=== PATIENT | female | born 2000 | race Asian ===

== ENCOUNTER → 2022-02-19 14:49 | Outpatient (CLI) | payer OTHER, SELFPAY ==
--- NOTE | 2022-02-19 14:50 | DI.US.S_ITS ---
PROCEDURE: US OB <= 14 WEEKS FETUS INDICATIONS: DATES OUTSIDE/PRIOR DATING DATA: Last menstrual period (LMP): 11/24/2021 LMP-based estimated date of delivery (EWELINA): 08/31/2022. First dating scan (date and location): 02/19/2022. Estimated date of delivery (EWELINA) from first dating scan: 09/22/2022. The calculations are made using the ultrasound EWELINA of 09/22/2022. TECHNIQUE: Real-time scanning was performed of the fetus and maternal pelvic organs, with image documentation. Endovaginal scanning was also performed to better visualize the fetus and maternal ovaries. COMPARISON: None. FINDINGS: Embryo: [place]-rump length measures 2.6 cm corresponding to 9 weeks 2 days. Heart rate: 180 beats per minute Maternal organs: Ovaries right ovary not visualized. 2.5 cm left corpus luteal cyst.. IMPRESSION: 9 week 2 day single living IUP. We strive to produce accurate, complete, and clear reports of imaging services. To assist us in improving patient care, this report was composed using standard report templates and voice recognition software. Therefore, it may contain abnormal punctuation, insertions and/or omissions. Occasional wrong-word or sound-alike substitutions may occur. Though we review the report and make efforts to correct it, we do recommend that the report be read carefully in proper context to recognize any text inaccuracies. Dictated by: Yobani FALL Interpreted: Julieta Marte MD on 02/19/2022 at 15:31 Transcribed by: SIENNA on 02/19/2022 at 15:32 Approved by: Julieta Marte MD, PhD on 02/19/2022 at 15:45
[2022-02-19 15:43] LABS: Add Manual Diff / Slide Review NO; Basophils Absolute Auto 0 /uL (0-100); Basophils Percent Auto 0.3 % (0-2); Eosinophils Absolute Auto 100 /uL (0-450); Eosinophils Percent Auto 1.2 % (2-4); Hematocrit 40.2 % (36-46); Hemoglobin 13.8 g/dL (12.0-16.0); Lymphocytes Absolute Auto 2400 /uL (1100-4500); Lymphocytes Percent Auto 22.4 % (25-40); Mean Corpuscular HGB Conc 34.3 % (30-36); Mean Corpuscular Hemoglobin 30.1 PG (26-34); Mean Corpuscular Volume 87.8 fL (80-100); Monocytes Absolute Auto 800 /uL (0-900); Monocytes Percent Auto 7.1 % (3-14); Neutrophils Absolute Auto 7300 /uL (1500-7000); Platelet Count 351 X10^3/uL (150-400); Red Blood Cell Count 4.58 X10^6/uL (4.0-5.2); Red Cell Distribution Width 14.1 % (11.6-14.8); White Blood Cell Count 10.6 X10^3/uL (4.5-11.0)
[2022-02-19 16:59] LABS: Hepatitis B Surface Antigen NEGATIVE s/c (NEGATIVE); Rubella Antibody IgG 55.3 IU/mL (>15)
[2022-02-19 17:17] LABS: HIV 1 & 2 Ab/Ag 4th Gen Combo NEGATIVE (NEGATIVE); Hep C Virus Ab w/Reflex Quant NEGATIVE s/c (NEGATIVE)
[2022-02-20 08:14] LABS: RPR Screen Non Reactive (Non Reactive); Varicella IgG Antibody 478 index (Immune >165)
== END ==
PROVIDERS: PCP Family Medicine; Referring Provider Family Medicine; Visit Provider Family Medicine
DX: Z34.01 Encounter for supervision of normal first pregnancy, first trimester (principal); Z3A.09 9 weeks gestation of pregnancy
CPT/HCPCS: 36415; 76801; 76817; 80055; 86787; 86803; 86850; 86900; 86901; 87389

== ENCOUNTER → 2022-04-23 15:44 | Outpatient (CLI) | payer OTHER, SELFPAY ==
[2022-04-28 07:38] LABS: AFP, Serum 35.2 ng/mL (.); Calc Gestational Age EDD (.); Estriol, Free 1.27 ng/mL (.); Inhibin A, Dimeric 129.38 pg/mL (.); Inhibin A, MoM 0.86 (.); Maternal Ethnicity Other (.); Maternal Weight 156 lbs (.); Number of Fetuses No (.); OSBR Risk 1 IN 10000 (.); Results Report (.); Test Results *Screen Negative* (.); hCG, MoM 0.79 (.); hCG, Serum 22134 mIU/mL (.)
== END ==
PROVIDERS: PCP Family Medicine; Referring Provider Family Medicine; Visit Provider Family Medicine
DX: Z34.92 Encounter for supervision of normal pregnancy, unspecified, second trimester (principal); Z3A.18 18 weeks gestation of pregnancy
CPT/HCPCS: 36415; 82105; 82677; 84702; 86336

== ENCOUNTER → 2022-07-03 09:49 | Outpatient (CLI) | payer OTHER, SELFPAY ==
[2022-07-03 11:34] LABS: Hematocrit 39.8 % (36-46)
[2022-07-03 12:01] LABS: GTT (PREG) 1 Hour PP 50gm Dose 147 mg/dL (76-139)
== END ==
PROVIDERS: PCP Family Medicine; Referring Provider Family Medicine; Visit Provider Family Medicine
DX: Z34.92 Encounter for supervision of normal pregnancy, unspecified, second trimester (principal); Z3A.25 25 weeks gestation of pregnancy
CPT/HCPCS: 36415; 82950; 85014; 85018

== ENCOUNTER → 2022-07-24 08:52 | Outpatient (CLI) | payer OTHER, SELFPAY ==
[2022-07-24 10:24] LABS: Glucose Fasting 107 mg/dL (70-100)
[2022-07-24 12:05] LABS: Glucose 1 Hour 188 mg/dL (70-170)
[2022-07-24 12:11] LABS: Glucose 2 Hour 146 mg/dL (70-140)
[2022-07-24 12:14] LABS: Glucose Tol Interpretation INTERPRETATION
[2022-07-24 14:14] LABS: Glucose 3 Hour 132 mg/dL (70-115)
== END ==
PROVIDERS: PCP Family Medicine; Referring Provider Family Medicine; Visit Provider Family Medicine
DX: O99.810 Abnormal glucose complicating pregnancy (principal)
CPT/HCPCS: 36415; 82951; 82952

== ENCOUNTER → 2022-08-10 14:50 | Outpatient (CLI) | payer OTHER, SELFPAY ==
--- NOTE | 2022-08-10 15:00 | DIET.CONS ---
Dietary Consultation Note Dx: Gestational Diabetes EWELINA: 09/22/22 P: 0 baby girl Weeks: 34w tomorrow Provider: See 21y F of Surinamese heritage attending telehealth RD visit for new diagnosis gestational diabetes. Pt reports she was worried about BG checking, was told by pharmacist to prick finger pad, pt had to psych herself up each time she checked, then looked at Youtube for advice and learned to prick side of finger pad. Pt now with no issue checking BGs, she is doing this four times per day. Pt states checking BGs has been helpful to understand impact of sugar and carbs in her diet. Pt noticed if she is dehydrated or eats/drinks carbs by themselves, her numbers are higher. Pt had several high FBG and 1hPP while attending a softball tournament down in [place]- she ate a sushi burrito and drank apple juice. Pt very motivated to avoid insulin. Self-Monitoring Blood Glucose: FB, 139, 94, 99, 88, 108, 90, 89, 97, 90, 93 pt drinking more water, not eating after 8pm, smaller portion sizes carbs at dinner 1h PP: only 2 over 140 (>1c overnight oats, macaroni salad, sticky rice, apple juice or other juice) Diet Recall: B: eggs c avocado and toast, strawberries and blueberries on side c water Sn: skinny pop popcorn or crackers and cheese L: balance bar or yogurt c fruit and granola, doesn't get too hungry Sn: crackers with cucumber and cream cheese D: salmon, steak, dawson peppers, zucchini, mushrooms, sometimes keto dessert sometimes glass of whole milk before bed Anthropometrics: Wt: 168# Prepregnancy wt: 145# Wt changes: +23# Physical Activity: Pt got advice from OB and online to walk after dinner 10-15min, doing this daily with spouse. Date Pre Post Pre Post Pre Post Labs: 1hGTT: 147 H 3hGTT: FB H 1h: 188 H 2h: 146 H 3h: 132 H Current Medications: glucometer c test strips Nutrition Rx: Carbohydrates: Daily: 180g CHO Meal: 45-g lunch and dinner; 30g breakfast Snack: 15-30g Nutrition Diagnosis: - Altered nutrition related lab value r/t GDM dx aeb recent OGTT Intervention: This participant was very receptive. Provided appropriate educational handouts. Discussed the following topics: - GDM pathophysiology and impact of hyperglycemia on mom and baby - Risk for T2DM for mom and baby in the future - Ways to reduce risk T2DM - Plate Method, meal timing, carb counting, pairing macronutrients and spreading out CHO for better BG management - Blood glucose goals (FBG: <95 and 1 hour <140 mg/dL); importance of checking 4x per day (FBG and pc) - Impact of macronutrients on blood glucose - Recommended servings for carbohydrates at meals and snacks - Brainstormed appropriate meal plan based on her food preferences - Role of physical activity and following provider guidelines for safety Pt may benefit from initiation of Metformin to support optimal FBGs. Goals: - Pt will continue to check BG 4x/d -Pt will continue to stay adequately hydrated using urine color test. -Pt will continue to go on 10-15min walk after dinner daily. -Pt will work on pairing foods and portion control with carbs-NEW Follow-up: LISETTE VASQUEZ follow-up in one week on Aug 19 virtual visit. Electronically Signed by: Izabel Ivan 08/10/22 15:00 Clinical Dietitian [address] [id number]
== END ==
PROVIDERS: PCP Family Medicine; Referring Provider Family Medicine; Visit Provider Family Medicine
DX: O24.419 Gestational diabetes mellitus in pregnancy, unspecified control (principal); Z71.3 Dietary counseling and surveillance; Z3A.33 33 weeks gestation of pregnancy
CPT/HCPCS: 97802

== ENCOUNTER → 2022-08-19 17:43 | Outpatient (CLI) | payer OTHER, SELFPAY ==
--- NOTE | 2022-08-19 17:46 | DIAB.GDFU ---
Follow-up Gestational Diabetes Assessment Name: Aneta Pena Date: 08/19/22 Time: 10-11a Dx: Gestational Diabetes Provider: See EWELINA: 09/22/22 Weeks: 35 Aneta presents today for GDM follow-up virtually using the Georgina [employer] platform. Aneta saw Izabel RD last week for initial visit. +FH of DM with paternal grandfather and mother had h/o GDM. Reports incorporating some additional carbs, but she does endorse feeling uneasy with BG even in the 130s. States she has tried to incorporate some culturally appropriate foods, such as rice, and had BG of 130s mg/dL (in goal). Endorses -6# with diet changes. Has increased fluids to 5L per day, notices urine is clear. Averaging 90g CHO per day with current diet, well under DEPILATORY PAINTER of 175g. Aneta is really wanting to avoid medications. Diet Recall: wake at 8-830a 830-9a: eggs c avocado and 1x ww toast, handful strawberries and blueberries on side c water 10-11a: nothing or tortilla chips x 9 and 2 TBS hummus 12-1p: balanced breaks 10g CHO, with handful berries ; omelet, berries and veggies 3-4p: 1c skinny pop or keto cookies 830p: salmon or steak, salad with mashed potatoes x 1/2c, veggies with sweetened oyster sauce (B) 10p: 8-10oz milk Bed 10-11p Beverages: 5L per day Anthropometrics: Wt: 162.5# last week with OB (-3.5# since a previous OB appt 07/09/22 with wt of 168.25) Prepregnancy wt: 145# Physical Activity: Walking 10-20min after dinner Self-Monitoring Blood Glucose: Reports late dinner last night. Thinks this may have impacted elevated FBG. / elevated FBG. 2 elevated pc readings with low carb meals. Aneta may benefit from low dose of Metformin to allow for more carb intake and reduce elevated FBG. Date FBG Post Post Post 08/12 92 146 [place] pancakes large portions 118 118 08/13 90 114 122 104 08/14 96 120 126 111 08/15 89 99 104 Yogurt 0g CHO Granola berries 104 08/16 98 141 Bbq bistek [place] egg 116 115 08/17 93 131 108 124 08/18 95 133 134 119 08/19 111 139 Diabetes Medications: None Pertinent Labs: 1hGTT: 147 H 3hGTT: FB H 1h: 188 H 2h: 146 H 3h: 132 H Nutrition Rx: Carbohydrates: Meal: 45-g lunch and dinner; 30g breakfast Snack: 15-30g Nutrition Diagnosis: Altered nutrition related lab value r/t GDM dx aeb recent OGTT Inadequate CHO intake r/t fear of hyperglycemia and trying to avoid medications aeb pt report and diet recall Intervention: This participant was very receptive. Provided appropriate educational handouts. Discussed the following topics: Recent blood sugar results and impact of food and hormones Encouraged min 30g at meals and 15-30g at snacks BG goals review Built a meal plan based on Aneta's food preferences Review of macronutrient recommendations during Benefits, resources, and nutrition for recommendations for nutrition and physical activity recommendations for T2DM risk reduction OGTT at 6-12 weeks Option of checking blood sugars twice per week (goal: fasting <100 mg/dL and 2 hour pc <140 mg/dL) until 6 week check-up HgA1c q 1-3 years. Goals: Pt will continue to check BG 4x/d- met Pt will continue to stay adequately hydrated using urine color test.- met Pt will continue to go on 10-15min walk after dinner daily.-met Pt will work on pairing foods and portion control with carbs-met Aim for 100-130oz or 3-4L- new Try 2/3c rice or noodles at meals- new Aim min 30g per meal- new Aim for 110-140mg/dL pc- new Follow-up: LISETTE VASQUEZ follow-up prn Kimmie Live RDN, CHRISTINA Certified Diabetes Care and Splitting Machine Tender T: [phone] F: [phone] [email or web address] Thank you for this referral
== END ==
PROVIDERS: PCP Family Medicine; Referring Provider Family Medicine; Visit Provider Family Medicine
DX: O24.419 Gestational diabetes mellitus in pregnancy, unspecified control (principal); Z3A.35 35 weeks gestation of pregnancy; Z71.3 Dietary counseling and surveillance
CPT/HCPCS: G0108

== ENCOUNTER → 2022-08-26 14:18 | Outpatient (CLI) | payer OTHER, SELFPAY ==
--- NOTE | 2022-08-26 14:22 | DI.US.S_ITS ---
PROCEDURE: US OB LIMITED INDICATIONS: for growth OUTSIDE/PRIOR DATING DATA: Last menstrual period (LMP): 11/24/2021. LMP-based estimated date of delivery (EWELINA): 08/31/2022 First dating scan (date and location): 02/19/2022 Estimated date of delivery (EWELINA) from first dating scan: 09/22/2022. The calculations are made using the ultrasound EWELINA of 09/22/2022. TECHNIQUE: Real-time scanning was performed of the fetus, with image documentation. COMPARISON: None. FINDINGS: A single living intrauterine gestation is present. Presentation: Cephalic. Placenta: Placental position is posterior/fundal, without previa. Amniotic fluid index: 8.8 cm, normal range is 5-24 cm. Single deepest vertical pocket is 5.2 cm. heart rate: 153 beats per minute. Maternal cervical canal: Unable to visualize the cervical canal. Estimated gestational age from initial scan: 36 weeks 1 day. Estimated gestational age from current scan: 35 weeks 5 days. Estimated weight 2735 g. 38th percentile. anatomy: Limited visualization. Prior survey done at [facility]. IMPRESSION: 1. Single living intrauterine with an estimated gestational age of 36 weeks 1 day from initial ultrasound. 2. Estimated weight 2735 g, 38th percentile. 3. The placenta is not well seen but appears to be posterior/fundal. Dictated by: Don Bennett M.D. on 08/26/2022 at 16:22 Approved by: Don Bennett M.D. on 08/26/2022 at 16:26
== END ==
PROVIDERS: PCP Family Medicine; Referring Provider Family Medicine; Visit Provider Family Medicine
DX: O24.410 Gestational diabetes mellitus in pregnancy, diet controlled (principal); Z3A.36 36 weeks gestation of pregnancy
CPT/HCPCS: 76815

== ENCOUNTER → 2022-08-27 15:29 | Outpatient (CLI) | payer OTHER, SELFPAY ==
[2022-08-28 11:00] LABS: Strep Grp B PCR POS for Grp B Strep
== END ==
PROVIDERS: PCP Family Medicine; Visit Provider Family Medicine
DX: Z34.93 Encounter for supervision of normal pregnancy, unspecified, third trimester (principal); Z3A.36 36 weeks gestation of pregnancy
CPT/HCPCS: 87653

== ENCOUNTER 2022-08-27 16:04 | Outpatient (CLI) | payer OTHER, SELFPAY ==
--- NOTE | 2022-08-27 16:32 | P.TNLD_ITS ---
Visit Information Visit Information Date of evaluation: 08/27/22 Primary OB Provider: Ghazala Cui Reason for Evaluation: Yes non-stress test non-stress test reason: diabetes Comments/Additional reasons for admission: 21-year-old at 36 weeks and 2 days now with GDM A2. Fasting blood sugars have been elevated since her last clinic visit so metformin was started today. She denies contractions, leaking or bleeding and reports good movement. Vital Signs Vital Signs: Temperature 36.7? blood pressure 115/64 heart rate 100 PFSH Medical History (Updated 08/27/22 @ 16:53 by Ghazala Cui DO) No pertinent past medical history Surgical History No pertinent past surgical history Family History Father Hypertension Grandfather Hypertension Diabetes mellitus Social History marital status: number of children: 0 household members: spouse housing: apartment pets and animals: Yes (dog) education level: college occupational status: unemployed rose/oriental orthodox: Yarsanism seatbelt use: always water heater temp set < 120 deg: Yes working smoke detector in home: Yes fire extinguisher in home: Yes carbon monox detector in home: Yes firearms in home: Yes firearms unloaded and locked: Yes do you feel safe at home: Yes Smoking Status: Never smoker second hand exposure: No alcohol intake: former substance use type: does not use during the past year weight has: remained stable well-balanced diet: daily or most days daily servings fruits/ve-4 caffeine: No (aware of 200mg limit) Type(s) of exercise: walking frequency: 3-4 times per week Evaluation Evaluation Baseline heart rate: 140 Variability: Moderate (11-25) monitor accelerations: Present Monitor Decelerations: Absent Category of Tracing: Reactive Diagnosis, Plan/Disposition Final Diagnosis (1) 36 weeks gestation of : Status: Acute (2) GDM, class A2: Status: Acute Plan/Disposition Plan: 21-year-old at 36 weeks and 2 days with GDM A2. NST reactive 8.8 on ultrasound yesterday and estimated weight at the thirty-eighth percentile. Will plan for twice weekly NST and weekly LIZBETH with induction at 39 weeks. OB Disposition: home
== END 2022-08-27 16:58 | disposition home or self-care (01) ==
LOC: OB 08-31 11:46
PROVIDERS: PCP Family Medicine; Referring Provider Family Medicine; Visit Provider Family Medicine
DX: O24.415 Gestational diabetes mellitus in pregnancy, controlled by oral hypoglycemic drugs (principal); Z3A.36 36 weeks gestation of pregnancy; Z34.93 Encounter for supervision of normal pregnancy, unspecified, third trimester
CPT/HCPCS: 59025; 87653; G0378; G0379

== ENCOUNTER 2022-08-31 07:56 | Outpatient (CLI) | payer OTHER, SELFPAY ==
--- NOTE | 2022-08-31 08:17 | P.TNLD_ITS ---
Visit Information Visit Information Date of evaluation: 08/31/22 Primary OB Provider: Ghazala Cui Reason for Evaluation: Yes non-stress test non-stress test reason: diabetes Vital Signs Vital Signs: Temperature 36.0? blood pressure 115/67 heart rate 99 PFSH Medical History (Updated 08/27/22 @ 16:53 by Ghazala Cui DO) No pertinent past medical history Surgical History No pertinent past surgical history Family History Father Hypertension Grandfather Hypertension Diabetes mellitus Social History marital status: number of children: 0 household members: spouse housing: apartment pets and animals: Yes (dog) education level: college occupational status: unemployed rose/rastafarian: Sabianist seatbelt use: always water heater temp set < 120 deg: Yes working smoke detector in home: Yes fire extinguisher in home: Yes carbon monox detector in home: Yes firearms in home: Yes firearms unloaded and locked: Yes do you feel safe at home: Yes Smoking Status: Never smoker second hand exposure: No alcohol intake: former substance use type: does not use during the past year weight has: remained stable well-balanced diet: daily or most days daily servings fruits/ve-4 caffeine: No (aware of 200mg limit) Type(s) of exercise: walking frequency: 3-4 times per week Evaluation Evaluation Baseline heart rate: 140 Variability: Moderate (11-25) monitor accelerations: Present Monitor Decelerations: Absent Category of Tracing: Reactive Diagnosis, Plan/Disposition Final Diagnosis (1) GDM, class A2: Status: Acute (2) 36 weeks gestation of : Status: Acute Plan/Disposition Plan: 21-year-old at 36 weeks and 6 days gestation with GDM A2 on metformin. NST reactive. Will plan for twice weekly NST and weekly LIZBETH until delivery at 39 weeks. OB Disposition: home
== END 2022-08-31 08:31 | disposition home or self-care (01) ==
LOC: OB 09-08 14:11
PROVIDERS: PCP Family Medicine; Referring Provider Family Medicine; Visit Provider Family Medicine
DX: O24.415 Gestational diabetes mellitus in pregnancy, controlled by oral hypoglycemic drugs (principal); Z3A.36 36 weeks gestation of pregnancy
CPT/HCPCS: 59025; G0378; G0379

== ENCOUNTER 2022-09-03 15:52 | Outpatient (CLI) | payer OTHER, SELFPAY ==
--- NOTE | 2022-09-03 16:17 | P.TNLD_ITS ---
Visit Information Visit Information Date of evaluation: 09/03/22 Primary OB Provider: Ghazala Cui Reason for Evaluation: Yes non-stress test non-stress test reason: diabetes PFSH Medical History No pertinent past medical history Surgical History No pertinent past surgical history Family History Father Hypertension Grandfather Hypertension Diabetes mellitus Social History marital status: number of children: 0 household members: spouse housing: apartment pets and animals: Yes (dog) education level: college occupational status: unemployed rose/faith: Zoroastrian seatbelt use: always water heater temp set < 120 deg: Yes working smoke detector in home: Yes fire extinguisher in home: Yes carbon monox detector in home: Yes firearms in home: Yes firearms unloaded and locked: Yes do you feel safe at home: Yes Smoking Status: Never smoker second hand exposure: No alcohol intake: former substance use type: does not use during the past year weight has: remained stable well-balanced diet: daily or most days daily servings fruits/ve-4 caffeine: No (aware of 200mg limit) Type(s) of exercise: walking frequency: 3-4 times per week Evaluation Evaluation Baseline heart rate: 130 Variability: Moderate (11-25) monitor accelerations: Present Monitor Decelerations: Absent Category of Tracing: Reactive Diagnosis, Plan/Disposition Final Diagnosis (1) GDM, class A2: Status: Acute (2) 37 weeks gestation of : Status: Acute Plan/Disposition Plan: 21-year-old at 37 weeks gestation with GDM A2 on metformin.? NST reactive.? LIZBETH will be done after leaving the center. Will continue twice weekly NST and weekly LIZBETH. Induction at 39 weeks. OB Disposition: home
--- NOTE | 2022-09-03 16:28 | DI.US.S_ITS ---
PROCEDURE: US OB LIMITED INDICATIONS: AMNIOTIC FLUID FOR GESTATIONAL DIABETES OUTSIDE/PRIOR DATING DATA: Last menstrual period (LMP): November 24, 2021 LMP-based estimated date of delivery (EWELINA): August 31, 2022. First dating scan (date and location): February 19, 2022. Estimated date of delivery (EWELINA) from first dating scan: September 22, 2022. TECHNIQUE: Real-time scanning was performed of the fetus, with image documentation. Endovaginal scanning: Not performed COMPARISON: [facility], OB LIMITED, 08/26/2022, 14:37. FINDINGS: A single living intrauterine gestation is present. Presentation: Vertex. Placenta: Placental position is posterior left, without previa. Amniotic fluid index: 8.0 cm, normal range is 5-24 cm. Single deepest vertical pocket is 4.0 cm. heart rate: 130 beats per minute. Maternal cervical canal: Maternal cervix not well visualized secondary to advanced maternal age and positioning Estimated gestational age from initial scan: 37 weeks and 2 days . IMPRESSION: Single living intrauterine gestation with estimated gestational age of approximately 37 weeks and 2 days. Four-quadrant LIZBETH measures 8 cm with deepest vertical pocket measuring 4.0 cm. Dictated by: Sky Riggins M.D. on 09/03/2022 at 18:30 Approved by: Sky Riggins M.D. on 09/03/2022 at 18:32
== END 2022-09-03 17:00 | disposition home or self-care (01) ==
LOC: LABOR 16:30 → OB 09-08 14:14
PROVIDERS: PCP Family Medicine; Referring Provider Family Medicine; Visit Provider Family Medicine
DX: O24.415 Gestational diabetes mellitus in pregnancy, controlled by oral hypoglycemic drugs (principal); Z3A.37 37 weeks gestation of pregnancy
CPT/HCPCS: 59025; 76815; G0378; G0379

== ENCOUNTER 2022-09-07 10:54 | Outpatient (CLI) | payer OTHER, SELFPAY ==
--- NOTE | 2022-09-07 13:03 | P.TNLD_ITS ---
Visit Information Visit Information Date of evaluation: 09/07/22 Primary OB Provider: Ghazala Cui Reason for Evaluation: Yes non-stress test non-stress test reason: diabetes Vital Signs Vital Signs: Temperature 36.6? blood pressure 110/67 heart rate 103 PFSH Medical History No pertinent past medical history Surgical History No pertinent past surgical history Family History Father Hypertension Grandfather Hypertension Diabetes mellitus Social History marital status: number of children: 0 household members: spouse housing: apartment pets and animals: Yes (dog) education level: college occupational status: unemployed rose/rastafarian: Sabianist seatbelt use: always water heater temp set < 120 deg: Yes working smoke detector in home: Yes fire extinguisher in home: Yes carbon monox detector in home: Yes firearms in home: Yes firearms unloaded and locked: Yes do you feel safe at home: Yes Smoking Status: Never smoker second hand exposure: No alcohol intake: former substance use type: does not use during the past year weight has: remained stable well-balanced diet: daily or most days daily servings fruits/ve-4 caffeine: No (aware of 200mg limit) Type(s) of exercise: walking frequency: 3-4 times per week Evaluation Evaluation Baseline heart rate: 140 Variability: Moderate (11-25) monitor accelerations: Present Monitor Decelerations: Absent Category of Tracing: Reactive Diagnosis, Plan/Disposition Final Diagnosis (1) GDM, class A2: Status: Acute (2) 37 weeks gestation of : Status: Acute Plan/Disposition Plan: 21-year-old at 37 weeks and 6 days gestation with GDM A2 on metformin.? NST reactive.?Will continue twice weekly NST and weekly LIZBETH.? Induction at 39 weeks. OB Disposition: home
== END 2022-09-07 11:35 | disposition home or self-care (01) ==
LOC: LABOR 12:53 → OB 09-10 11:04
PROVIDERS: PCP Family Medicine; Referring Provider Family Medicine; Visit Provider Family Medicine
DX: O24.415 Gestational diabetes mellitus in pregnancy, controlled by oral hypoglycemic drugs (principal); Z3A.37 37 weeks gestation of pregnancy
CPT/HCPCS: 59025; G0378; G0379

== ENCOUNTER → 2022-09-11 10:21 | Outpatient (CLI) | payer OTHER, SELFPAY ==
--- NOTE | 2022-09-11 10:23 | DI.US.S_ITS ---
PROCEDURE: US OB LIMITED INDICATIONS: LIZBETH. OUTSIDE/PRIOR DATING DATA: Last menstrual period (LMP): 11/24/2021 LMP-based estimated date of delivery (EWELINA): 08/31/2022. First dating scan (date and location): 02/19/2022. Estimated date of delivery (EWELINA) from first dating scan: 09/22/2022. The calculations are made using the working EWELINA of 09/22/2022. TECHNIQUE: Real-time scanning was performed of the fetus, with image documentation. Endovaginal scanning: Not performed COMPARISON: 09/03/2022 FINDINGS: A single living intrauterine gestation is present. Presentation: Cephalic. Placenta: Placental position is posterior and maternal left, without previa. Amniotic fluid index: 8 cm, normal range is 5-24 cm. Single deepest vertical pocket is 2.6 cm. heart rate: 132 beats per minute. Clinically estimated gestational age: 38 weeks 3 days IMPRESSION: Single living intrauterine gestation. LIZBETH 8 centimeters with deepest pocket 2.6 centimeters. Normal heart rate. Dictated by: Damion Fernandes M.D. on 09/11/2022 at 13:33 Approved by: Damion Fernandes M.D. on 09/11/2022 at 13:35
== END ==
PROVIDERS: PCP Family Medicine; Referring Provider Family Medicine; Visit Provider Family Medicine
DX: O24.419 Gestational diabetes mellitus in pregnancy, unspecified control (principal); Z3A.38 38 weeks gestation of pregnancy
CPT/HCPCS: 76815

== ENCOUNTER 2022-09-11 10:43 | Outpatient (CLI) | payer OTHER, SELFPAY ==
--- NOTE | 2022-09-11 11:26 | PM.OBTRLD ---
Visit Information Visit Information Date of evaluation: 09/11/22 Primary OB Provider: Ghazala Cui Reason for Evaluation: Yes non-stress test non-stress test reason: diabetes Vital Signs Vital Signs: Temperature 36.8? blood pressure 111/75 heart rate 115 PFSH Medical History No pertinent past medical history Surgical History (Reviewed 09/11/22 @ 11: by Ghazala Cui DO) No pertinent past surgical history Family History (Reviewed 09/11/22 @ 11: by Ghazala Cui DO) Father Hypertension Grandfather Hypertension Diabetes mellitus Social History (Reviewed 09/11/22 @ 11: by Ghazala Cui DO) marital status: number of children: 0 household members: spouse housing: apartment pets and animals: Yes (dog) education level: college occupational status: unemployed rose/congregation: Restorationism seatbelt use: always water heater temp set < 120 deg: Yes working smoke detector in home: Yes fire extinguisher in home: Yes carbon monox detector in home: Yes firearms in home: Yes firearms unloaded and locked: Yes do you feel safe at home: Yes Smoking Status: Never smoker second hand exposure: No alcohol intake: former substance use type: does not use during the past year weight has: remained stable well-balanced diet: daily or most days daily servings fruits/ve-4 caffeine: No (aware of 200mg limit) Type(s) of exercise: walking frequency: 3-4 times per week Evaluation Evaluation Baseline heart rate: 140 Variability: Moderate (11-25) monitor accelerations: Present Monitor Decelerations: Absent Category of Tracing: Reactive Diagnosis, Plan/Disposition Final Diagnosis (1) GDM, class A2: Status: Acute (2) 38 weeks gestation of : Status: Acute Plan/Disposition Plan: 21-year-old at 38 weeks and 3 days gestation with GDM A2 on metformin.? NST reactive, LIZBETH 8.?Will continue twice weekly NST and weekly LIZBETH.? Induction scheduled 09/17/22. OB Disposition: home
== END 2022-09-11 11:45 | disposition home or self-care (01) ==
LOC: OB 09-15 17:16
PROVIDERS: PCP Family Medicine; Referring Provider Family Medicine; Visit Provider Family Medicine
DX: O24.415 Gestational diabetes mellitus in pregnancy, controlled by oral hypoglycemic drugs (principal); Z3A.38 38 weeks gestation of pregnancy
CPT/HCPCS: 59025; 76815; G0378; G0379

== ENCOUNTER 2022-09-12 | Inpatient (IN) | payer OTHER, SELFPAY ==
[2022-09-12] VITALS (7 sets, daily range): BP systolic 92–127; BP diastolic 45–67; PULSE 105–119; RESP 20; TEMP 36.6–37.8; O2SAT 98–99
[2022-09-12 01:34] LABS: Add Manual Diff / Slide Review NO; Basophils Absolute Auto 0 /uL (0-100); Basophils Percent Auto 0.2 % (0-2); Eosinophils Absolute Auto 100 /uL (0-450); Eosinophils Percent Auto 0.7 % (2-4); Hemoglobin 12.2 g/dL (12.0-16.0); Lymphocytes Absolute Auto 1400 /uL (1100-4500); Lymphocytes Percent Auto 13.1 % (25-40); Mean Corpuscular HGB Conc 32.1 % (30-36); Mean Corpuscular Hemoglobin 26.8 PG (26-34); Mean Corpuscular Volume 83.3 fL (80-100); Monocytes Absolute Auto 800 /uL (0-900); Monocytes Percent Auto 7.6 % (3-14); Neutrophils Absolute Auto 8500 /uL (1500-7000); Neutrophils Percent Auto 78.4 % (50-75); Platelet Count 321 X10^3/uL (150-400); Red Blood Cell Count 4.57 X10^6/uL (4.0-5.2); Red Cell Distribution Width 15.5 % (11.6-14.8); White Blood Cell Count 10.9 X10^3/uL (4.5-11.0)
[2022-09-12] MEDS: LACTATED RINGERS 1,000 ML 100 ML IV ×4 (01:40→20:00)
[2022-09-12] MEDS: PENICILLIN G POTASSIUM 5,000,000 UNIT in DEXTROSE 5% IN WATER 250 ML 250 UNIT IV (01:41)
[2022-09-12 01:44] LABS: COVID19 -Nasal RAPID Negative (Negative)
--- NOTE | 2022-09-12 01:48 | PM.OBHP.1 ---
OB HPI Date/Time Date of admission: 09/12/22 Date Patient Seen: 09/12/22 History of Present Condition Chief complaint: : 1 Para: 0 Estimated Date of Delivery: 09/22/22 Estimated Gestational Age (weeks): 38 Narrative: Aneta Pena is a 21 year old female admitted with spontaneous rupture membranes not in labor Indications Indication for induction OB: gestational diabetes (On metformin) History of Present care: good care, initiated at week # (10), number of visits (11) and pounds weight gain (22) Dating criteria: based on 1st trimester US only Ultrasounds: normal mid trimester US Obstetrical complications: gestational diabetes (On metformin) Medical complications: none Preadmission Labs Blood type: A (+) positive -: Antibody screen: negative, GBS status: negative, HBsAG: negative, HIV: negative and RPR/VDLR: negative -: Chlamydia screen: not detected and Gonorrhea screen: not detected -: Rubella: immune and Varicella: immune HCAB: negative Quad screen: Normal 1 hr GTT: 147 3 hr GTT: 1 hr (188), 2 hr (146) and 3 hr (132) Fasting blood glucose: 107 Evaluation Evaluation Baseline heart rate: 140 Variability: Moderate (11-25) monitor accelerations: Present Monitor Decelerations: Absent Contraction Frequency (minutes): 0 Uterine Contraction Intensity: Mild Category of Tracing: Reactive Status: Category l Non-invasive Membranes Rupture Test: positive PFSH Medical History No pertinent past medical history Surgical History No pertinent past surgical history Family History Father Hypertension Grandfather Hypertension Diabetes mellitus Social History marital status: number of children: 0 household members: spouse housing: apartment pets and animals: Yes (dog) education level: college occupational status: unemployed rose/oriental orthodox: Mandaeism seatbelt use: always water heater temp set < 120 deg: Yes working smoke detector in home: Yes fire extinguisher in home: Yes carbon monox detector in home: Yes firearms in home: Yes firearms unloaded and locked: Yes do you feel safe at home: Yes Smoking Status: Never smoker second hand exposure: No alcohol intake: former substance use type: does not use during the past year weight has: remained stable well-balanced diet: daily or most days daily servings fruits/ve-4 caffeine: No (aware of 200mg limit) Type(s) of exercise: walking frequency: 3-4 times per week Meds Home Medications and Allergies Home Medications Medication Instructions Recorded Confirmed Type prenat.vits,[place],mfv-uucb-vcfof 1 tab PO DAILY 02/27/22 09/12/22 History Glucometer #1 ea 07/30/22 09/12/22 Rx double electric breast pump and #1 ea 07/30/22 09/12/22 Rx supplies metformin 500 mg tablet 500 mg PO BID #60 tabs 08/27/22 09/12/22 Rx lancets 28 gauge (FreeStyle #100 ea 08/28/22 09/12/22 Rx Lancets) blood sugar diagnostic (FreeStyle #100 strips 09/03/22 09/12/22 Rx Lite Strips) Allergies Allergy/AdvReac Type Severity Reaction Status Date / Time No Known Drug Allergies Allergy Verified 09/10/22 15:18 Review of Systems Review of Systems Narrative: Patient with spontaneous rupture membranes. No regular contractions. Good movement. Mild headache, no scotomata or epigastric pain. OB Exam Narrative Exam Narrative: Blood pressure 127/71, pulse of 122, temperature 97.8? HEENT exam within normal limits. Lungs are clear to auscultation percussion. Heart is regular rate and rhythm no S3-S4 murmurs. Abdomen is gravid. Fetus is vertex. Vaginal exam not performed. Extremities without edema and nontender. Objective Labs Result Diagrams: 09/12/22 01:15 Labs: Laboratory Results - last 24 hr 09/12/22 09/12/22 01:15 01:15 WBC 10.9 RBC 4.57 Hgb 12.2 Hct 38.0 MCV 83.3 MCH 26.8 MCHC 32.1 RDW 15.5 H Plt Count 321 Neut % (Auto) 78.4 H Lymph % (Auto) 13.1 L [place] % (Auto) 7.6 Eos % (Auto) 0.7 L Baso % (Auto) 0.2 Neut # (Auto) 8500 H Lymph # (Auto) 1400 [place] # (Auto) 800 Eos # (Auto) 100 Baso # (Auto) 0 SARS-CoV-2 (PCR) Negative Assessment and Plan Assessment and Plan Assessment and Plan narrative: 38 week gestation, metformin controlled gestational diabetes, with spontaneous rupture membranes. Will wait to see if patient begins in active labor. Time Spent with Patient Total time spent with greater than 50% in coordination of care (as documented) at patient's floor/unit and/or counseling patient:: less than 15 minutes
[2022-09-12] MEDS: PENICILLIN G POTASSIUM 3,000,000 UNIT/50 ML FROZ.PIGGY 100 UNIT IV ×4 (05:43→18:02)
--- NOTE | 2022-09-12 09:26 | PM.OBPNLAB ---
Date/Time Date Patient Seen: 09/12/22 Time Patient Seen: 09:27 Pain Control Pain control: epidural (Requesting epidural) Pelvic Exam Dilation (cm): 4 Effacement (%): 100 station: 0 Amniotic membrane status: Ruptured Contractions Contractions on admission: irregular Monitor mode: External Contraction frequency (min): 4 Contraction duration (min): 1 Contraction pattern: Irregular Contraction intensity: Moderate Status status: Category l Heart Rate Baseline: 130 Monitor Accelerations: Present Monitor Decelerations: Absent Monitor Variability: Moderate Assessment and Plan Assessment: active labor Plan: continuous present management and begin patient augmentation (If contraction pattern decreases after epidural)
[2022-09-12] MEDS: fentaNYL 100 MCG/2 ML INJ 50 MCG IV (10:24)
[2022-09-12] MEDS: ePHEDrine 50 MG/ML VIAL 10 MG IV (12:50)
[2022-09-12] MEDS: FENT 2MCG/ML BUPIV 0.125% EPI 200 MCG/100 ML PLAST..BAG 6 MCG EPIDURAL (17:15)
--- NOTE | 2022-09-12 17:37 | PM.OBPNLAB ---
Date/Time Date Patient Seen: 09/12/22 Time Patient Seen: 17:37 Pain Control Pain control: epidural Pelvic Exam Dilation (cm): 9 Effacement (%): 100 station: 0 Amniotic membrane status: Ruptured Contractions Monitor mode: Internal (Placed now) Contraction frequency (min): 4 Contraction duration (min): 1 Contraction pattern: Regular Contraction intensity: Moderate Status status: Category ll Heart Rate Baseline: 140 Monitor Accelerations: Present Monitor Decelerations: Episodic Monitor Variability: Moderate Assessment and Plan Assessment: induction ongoing Plan: begin patient augmentation Comments: Patient with low-grade fever. She is gotten 4 doses of IV penicillin. Will give Tylenol.
[2022-09-12] MEDS: OXYTOCIN PREMIX 30 UNIT/500 ML PLAST..BAG IV (17:43)
[2022-09-12] MEDS: ACETAMINOPHEN 325 MG TABLET 650 MG PO (17:58)
--- NOTE | 2022-09-12 19:23 | PM.PREOP ---
Pre-operative Note COVID-19 COVID-19 status: Negative Result date/Date tested (Pos, Neg/Pending): 09/12/22 Criteria for continued procedure: Deterioration of the patient's condition or overall health Interval Note History & Physical reviewed/Exam performed by Physician: Yes Changes to H&P: Yes H&P completed within 30 days and has changed as indicated here:: Failure to progress with distress
[2022-09-12] MEDS: CITRIC ACID/SODIUM CITRATE 15 ML SOLUTION PO (19:24)
[2022-09-12] MEDS: CLINDAMYCIN 900 MG/50 ML PIGGYBACK 50 MG IV (19:36)
--- NOTE | 2022-09-12 20:07 | SUR.OPER ---
Supine on Padded OR bed, head on pillow, safety belt at thigh, arms secured on padded arm boards at <90 degrees abduction. Bump under right buttock. Legs uncrossed, gel pad to heels.
[2022-09-12] MEDS: ACETAMINOPHEN IV 1,000 MG/100 ML VIAL 400 MG IV (20:45)
--- NOTE | 2022-09-12 21:10 | PM.OBCS.1 ---
Operative Date/Time/Diagnoses Date of procedure: 09/12/22 Time of procedure: 21:10 Pre-op diagnosis: 1st stage arrest and intolerance of labor Post-op diagnosis: same Procedure & Clinicians Procedure: Primary low-transverse section Same procedure as scheduled: Yes Indications: Patient did not progress past 9 cm and when Pitocin begun heart rate increased to the 190s followed by a prolonged decelerations so decision was made to proceed with section Surgeon: Maria Elena Dueñas Click Yes if Unassisted: Yes Anesthesia Type: General (Patient began having severe pain after closure of the uterus so she underwent a general anesthetic) and Epidural Operative Notes Findings: Normal tubes, ovaries, uterus. Viable female with Apgars of 8 and 9. Closure Type: primary Specimen(s): cord blood and cord pH Intraoperative meds administered: Acetaminophen, Duramorph, Ketorolac and Pitocin Applied: Catheter (Jamil) Estimated Blood Loss (mL): 700 Blood products transfused: none Procedure in detail: The patient was brought to the operating room where she underwent bolus of her epidural for anesthesia. She was placed in a supine position with a left lateral tilt. A Jamil catheter was in place. Pulsatile stockings were placed and functional throughout the case. 900 mg clindamycin were given IV prior to the incision. Warming was in place. The patient was prepped and draped in usual sterile fashion. A low transverse incision was made with a scalpel and the incision was carried down to the fascial layer which was incised transversely with scissors. The midline attachments are superiorly and inferiorly. Some bleeding was controlled Bovie. The rectus muscles were in the midline and the peritoneal incision was made with no damage to internal structures. The peritoneum was incised and superiorly and inferiorly. The incision was stretched with the surgeon and college sports assistant placing traction. Bladder blade was placed and a bladder flap was developed and the bladder held away from the lower uterine segment. An incision was made in the uterus with the scalpel and the incision was extended with stretching. The head was elevated out of the abdomen and with fundal pressure by the college sports assistant the baby was delivered. After 1 minute the cord was clamped and a section of the cord sent for cord gases. The was bulb suctioned for clear fluid and handed off to the warmer. Cord blood was collected. The placenta delivered spontaneously with traction. The uterus was cleaned with clean laps. The uterine incision was closed in 2 layers of 0 chromic suture the first a running locking layer the second an imbricating layer. The college sports assistant was helping to expose the incision. At this point the patient became very uncomfortable with any manipulation of the abdomen so the patient underwent a general anesthesia. The bladder peritoneum was repaired with 2-0 Vicryl suture. The gutters were cleaned of any remaining fluids and ovaries and tubes were observed to be normal. Adequate hemostasis was noted. The perineum was closed with 2-0 Vicryl suture. The fascia layer was closed with 0 Vicryl suture with 2 stitches. The college sports assistant repairing half the incision with helping to retract and expose the incision for the other half. The incision was irrigated and adequate hemostasis noted. The incision was closed with interrupted 3-0 Vicryl sutures and then a subcuticular stitch of 4-0 Vicryl suture. Steri-Strips were placed. The uterus was massaged to remove any clots. The patient went to recovery room in good condition. Counts of instruments and sponges were correct. Complications: none [place] Baby 1: Gender: Female Presentation: vertex Position: Occiput Posterior Placental Delivery Description: Expressed Cord Vessel Description: 3 Vessels score (1 min): 8 score (5 min): 9 Post-operative Condition: stable Disposition: PACU Aftercare: routine postop
--- NOTE | 2022-09-12 21:10 | SUR.OPER ---
Viable baby girl born at 1998. Cord blood vials x2 and placenta given to OB RN.
[2022-09-12] MEDS: LACTATED RINGERS 1,000 ML 120 ML IV (21:28)
--- NOTE | 2022-09-12 21:38 | SUR.PHASEI ---
Pt transferred to center in by by irene RN and Danielle Juan who came to PACU with baby who was placed skin to skin with mom and baby began breast feeding.
[2022-09-13] MEDS: KETOROLAC 30 MG/ML VIAL IV ×3 (02:12→14:11)
[2022-09-13 06:48] LABS: Add Manual Diff / Slide Review NO; Basophils Absolute Auto 0 /uL (0-100); Basophils Percent Auto 0.1 % (0-2); Eosinophils Absolute Auto 100 /uL (0-450); Eosinophils Percent Auto 0.6 % (2-4); Hematocrit 30.9 % (36-46); Lymphocytes Absolute Auto 1300 /uL (1100-4500); Lymphocytes Percent Auto 11.3 % (25-40); Mean Corpuscular HGB Conc 32.5 % (30-36); Mean Corpuscular Hemoglobin 26.4 PG (26-34); Mean Corpuscular Volume 81.4 fL (80-100); Monocytes Absolute Auto 900 /uL (0-900); Monocytes Percent Auto 8.1 % (3-14); Neutrophils Absolute Auto 9000 /uL (1500-7000); Neutrophils Percent Auto 79.9 % (50-75); Platelet Count 234 X10^3/uL (150-400); Red Cell Distribution Width 15.8 % (11.6-14.8); White Blood Cell Count 11.3 X10^3/uL (4.5-11.0)
[2022-09-13] MEDS: OXYCODONE IR 5 MG TABLET PO ×3 (07:58→20:54)
[2022-09-13] MEDS: DOCUSATE 100 MG CAPSULE 200 MG PO (09:16)
--- NOTE | 2022-09-13 11:05 | P.PNOB_ITS ---
Subjective - OB Subjective Patient comments: pain well controlled [place] baby status: doing well feeding status: exclusively breast feeding Date Patient Seen: 09/13/22 Time Patient Seen: 11:06 Interval history: Patient is doing well. She is not tried to ambulate yet post section. Exam Vital Signs (past 8 hours): Blood pressure 109/69, pulse 79, temperature 97.5? Oxygen Delivery Method Room Air Narrative Exam Narrative: Abdomen is soft, nontender. Uterus is firm, at U, appropriately tender. Dressing is clean, dry, intact. Mild lochia. Extremities without edema and nontender. Objective Labs Result Diagrams: 09/13/22 06:30 Labs: Laboratory Results - last 24 hr 09/13/22 06:30 WBC 11.3 H RBC 3.80 L Hgb 10.0 L Hct 30.9 L MCV 81.4 MCH 26.4 MCHC 32.5 RDW 15.8 H Plt Count 234 Neut % (Auto) 79.9 H Lymph % (Auto) 11.3 L [place] % (Auto) 8.1 Eos % (Auto) 0.6 L Baso % (Auto) 0.1 Neut # (Auto) 9000 H Lymph # (Auto) 1300 [place] # (Auto) 900 Eos # (Auto) 100 Baso # (Auto) 0 Assessment & Plan Assessment and Plan (1) Delivery by section using transverse incision of lower segment of uterus: Status: Acute Plan day: 1 plan OB: routine postop care Time Spent With Patient Time: Total time spent is greater than 50% in coordination of care (as documented) at patient's floor/unit and/or counseling patient: Time with patient: less than 15 minutes
[2022-09-13 11:45] VITALS: TEMP 37.1
[2022-09-13 14:11] VITALS: TEMP 37.1
[2022-09-13] MEDS: LANOLIN OINT 7 GM 1 APPLIC TOP (17:50)
[2022-09-13] MEDS: ACETAMINOPHEN 325 MG TABLET 650 MG PO (17:51)
[2022-09-13] MEDS: IBUPROFEN 600 MG TABLET PO (20:54)
[2022-09-14] MEDS: ACETAMINOPHEN 325 MG TABLET 650 MG PO ×3 (00:19→12:53)
[2022-09-14] MEDS: IBUPROFEN 600 MG TABLET PO ×3 (02:58→15:47)
--- NOTE | 2022-09-14 08:21 | PM.OBDS.1 ---
Discharge Providers Provider Date of admission: 09/12/22 00:00 Discharge Date: 09/14/22 Primary care physician: Ghazala Cui DO Consults: 09/12/22 21:47 Consult to Composing Machine Operator Routine Comment: Discharge provider: Ghazala Cui DO Summary Hospital Course Date Patient Seen: 09/14/22 Time Patient Seen: 08:21 Diagnoses: 38 weeks of Stage I arrest of labor intolerance of labor Status post primary section GDM A2 Hospital Course: Patient is a 21-year-old after primary section for arrest of labor, maternal fever and distress. Apgars were 8 and 9. She presented with spontaneous rupture of membranes at 38 weeks and 4 days and received penicillin for GBS prophylaxis. She went on to receive an epidural then decision was made for section for the previously mentioned reasons. course has been uncomplicated. She is ambulating voiding and passing flatus. Vaginal bleeding is light to moderate and pain controlled with Tylenol and oxycodone. is going well without concerns in the . Advised patient to call for fevers, severe pain or bleeding through more than a pad an hour. She will follow-up in clinic later this week for Aquacel dressing removal. Peripartum Data Infant Delivery Method: Section Discharge Diagnosis (1) Delivery by section using transverse incision of lower segment of uterus: Status: Acute Time Spent with Patient Time attestation: Total time spent providing and/or coordinating discharge services: Objective Labs Result Diagrams: 09/13/22 06:30 Exam Vital Signs (past 8 hours): Oxygen Delivery Method Room Air Temperature 97.1? blood pressure 106/58 heart rate 62 respirations 18 Narrative Exam Narrative: General: Awake and alert, no acute distress. HEENT: NCAT, EOMI, moist oral mucosa CV: Regular rate and rhythm, no murmurs, rubs or gallops Lungs: CTAB, no wheezes, rales, or rhonchi Abdomen: Aquacel dressing intact with no new drainage. Soft, nontender; bowel tones active; uterus firm 1 cm below umbilicus. Extremities: Warm, no edema Discharge Plan Discharge Plan Patient Disposition: Home Discharge orders & Medications Prescriptions: New docusate sodium 100 mg Capsule 200 mg PO DAILY Qty: 30 0RF ibuprofen 600 mg Tablet 600 mg PO Q6H PRN (Reason: Fever/Mild Pain (1-3)) Qty: 30 0RF oxycodone 5 mg Tablet 5 mg PO Q4H PRN (Reason: Pain, Moderate (4-6)) Qty: 20 0RF Continued (DME) double electric breast pump and supplies See Rx Instructions .Route .MEDSUPPLY Qty: 1 0RF Rx Instructions: Use as directed prenat.vits,[place],aey-kkyo-skylz Tablet 1 tab PO DAILY Discontinued (DME) FreeStyle Lite Strips Strip See Rx Instructions .ROUTE .COMPLEX Qty: 100 0RF Dose Instruction: USE DIRECTED. Rx Instructions: Use twice daily metformin 500 mg tablet 500 mg PO BID Qty: 60 3RF (DME) Glucometer See Rx Instructions .Route .MEDSUPPLY Qty: 1 0RF Rx Instructions: Use as directed by physician (DME) lancets [FreeStyle Lancets] 28 gauge misc See Rx Instructions .ROUTE .COMPLEX Qty: 100 0RF Dose Instruction: USE DIRECTED Rx Instructions: test up to three times daily Follow up/Referrals: Ghazala Cui DO [Primary Care Provider] - 09/17/22 4:00 pm Visit Report/Discharge Packet Instructions: DI for Prescription Opioid Use Stand Alone Forms: Discharge: Care Visit Report Forms: Patient Portal/API, Stroke Signs & Symptoms Discharge Data Primary Care Provider: Ghazala Cui
[2022-09-14] MEDS: DOCUSATE 100 MG CAPSULE 200 MG PO (08:58)
[2022-09-14] MEDS: LANOLIN OINT 7 GM 1 APPLIC TOP (08:58)
[2022-09-14] MEDS: OXYCODONE IR 5 MG TABLET PO ×2 (08:59→15:48)
[2022-09-14 18:03] VITALS: BP 106/54; PULSE 74; RESP 20; TEMP 37.2
== END 2022-09-14 17:51 | disposition home or self-care (01) | DRG 788 ==
PROVIDERS: Specialist; Admitting Provider Obstetrics & Gynecology; PCP Family Medicine; Referring Provider Obstetrics & Gynecology; Visit Provider Obstetrics & Gynecology
PROC: 10D00Z1 Extraction of Products of Conception, Low, Open Approach (ICD-10-PCS; CPT 59514; principal; 2022-09-12 20:15)
DX: O76 Abnormality in fetal heart rate and rhythm complicating labor and delivery (principal); Z3A.38 38 weeks gestation of pregnancy; Z37.0 Single live birth; O24.425 Gestational diabetes mellitus in childbirth, controlled by oral hypoglycemic drugs; O62.1 Secondary uterine inertia; O42.02 Full-term premature rupture of membranes, onset of labor within 24 hours of rupture; Z20.822 Contact with and (suspected) exposure to COVID-19
CPT/HCPCS: 01967; 01968; 36415; 59050; 59510; 59514; 84112; 85025; 86850; 86900; 86901; 87635; C9803; G0379; J0131; J0330; J1885; J2274; J2405; J2540; J2590; J2704; J2765; J3010

== ENCOUNTER → 2024-12-04 13:11 | Outpatient (CLI) | payer OTHER, SELFPAY ==
[2024-12-04 14:56] LABS: Influenza A - CEPHEID Flu A NEGATIVE (NEGATIVE); Influenza B - CEPHEID Flu B NEGATIVE (NEGATIVE); Respiratory Syncytial Virus POSITIVE (Negative)
[2024-12-04 14:58] LABS: COVID-19 CEPHEID 4-PLEX PCR Negative (Negative)
== END ==
PROVIDERS: PCP Family Medicine; Visit Provider Nurse Practitioner Family
DX: R05.1 Acute cough (principal); J02.9 Acute pharyngitis, unspecified
CPT/HCPCS: 0241U; 87070; 87077; 87147